=== PATIENT | female | born 1980 | race American Indian/Alaskan Native ===

== ENCOUNTER 2016-05-14 18:04 | Emergency (ER) | payer MEDICAID ==
--- NOTE | 2016-05-14 18:40 | ED PDOC ---
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 Patient stated she slipped and fell down backward as she was walking downstairs. Patient denies head injury, loc, neck pain, elbow pain, shoulder pain, back pain , dizziness, weakness, paresthesias, or abnormal gait. Time/Duration: Prior to Arrival Context: Home Past Medical History - Provider Review Nursing Documentation Reviewed: Yes - Infectious Disease Hx of Infectious Diseases: None - Psychiatric Hx Substance Use: No Family/Social History - Physician Review Nursing Documentation Reviewed: Yes Family/Social History: No Known Family HX Smoking Status: Light Smoker < 10 Cigarettes Daily Hx Alcohol Use: Yes Frequency of alcohol use: Socially Hx Substance Use: No Allergies/Home Meds Allergies/Adverse Reactions: Allergies No Known Allergies Allergy (Verified 05/14/16 18:19) Review of Systems - Review of Systems Constitutional: Normal. absent: Fatigue, Weight Change, Fevers, Night Sweats Eyes: Normal ENT: Normal Respiratory: Normal Cardiovascular: Normal Gastrointestinal: Normal Genitourinary Female: Normal Musculoskeletal: Other (Right thumb pain) Skin: Normal Neurological: Normal Endocrine: Normal Hemo/Lymphatic: Normal Psychiatric: Normal Physical Exam Vital Signs Temp Pulse Resp BP Pulse Ox 05/14/16 18:16 97.8 F 78 18 128/78 99 Temperature: Afebrile Blood Pressure: Normal Pulse: Regular Respiratory Rate: Normal Appearance: Positive for: Well-Appearing, Non-Toxic, Comfortable Pain Distress: None Mental Status: Positive for: Alert and Oriented X 3 - Systems Exam Head: Present: Atraumatic, Normocephalic, Other (No raccoon sign. No pelaez sign) Pupils: Present: PERRL, Other (no hyphema) Extroacular Muscles: Present: EOMI. No: Entrapment Conjunctiva: Present: Normal Ears: Present: Normal, NORMAL TM, Other (No hemotympanum) Mouth: Present: Moist Mucous Membranes Pharnyx: Present: Normal Nose (External): Present: Atraumatic Nose (Internal): Present: Normal Inspection Neck: Present: Normal Range of Motion, Trachea Midline. No: Meningeal Signs, MIDLINE TENDERNESS, Paraspinal Tenderness Respiratory/Chest: Present: Clear to Auscultation, Good Air Exchange. No: Respiratory Distress, Accessory Muscle Use, Tender to Palpation Cardiovascular: Present: Regular Rate and Rhythm, Normal S1, S2. No: Murmurs Abdomen: Present: Normal Bowel Sounds. No: Tenderness, Distention, Peritoneal Signs Back: Present: Normal Inspection. No: CVA Tenderness Upper Extremity: Present: Normal Inspection, NORMAL PULSES, Tenderness (Mild tenderness on proximal 1st MPJ of right hand, ulnar side). No: Cyanosis, Edema Lower Extremity: Present: Normal Inspection. No: Edema Neurological: Present: GCS=15, CN II-XII Intact, Speech Normal Skin: Present: Warm, Dry, Normal Color. No: Rashes Psychiatric: Present: Alert, Oriented x 3 Medical Decision Making ED Course and Treatment: 05/14/16 19:23 Re-evaluation. Patient feels better. Discussed results and plan with patient who expresses understanding. All questions answered and there is agreement with the plan to discharge home with instructions. Patient stable for discharge. Return if symptoms persist or worsen. Re-evaluation Time: 19:30 Reassessment Condition: Re-examined, Improved - RAD Interpretation Narrative RAD Interpretations (Text): 05/14/16 19:24 Thumb x-rays: No fx or dislocation Radiology Orders: 05/14/16 18:36 HAND RIGHT THUMB [RAD] Stat - Medication Orders Current Medication Orders: Discontinued Medications Ibuprofen (Motrin Tab) 600 mg PO STAT STA Stop: 05/14/16 18:38 Last Admin: 05/14/16 18:47 Dose: 600 MG - Procedure PROCEDURE NOTE (Text): 05/14/16 19:24 Thumb spika splint was ordered Disposition/Present on Arrival - Present on Arrival Any Indicators Present on Arrival: No History of DVT/PE: No History of Uncontrolled Diabetes: No Urinary Catheter: No History of Decub. Ulcer: No History Surgical Site Infection Following: None - Disposition Have Diagnosis and Disposition been Completed?: Yes Diagnosis: Thumb sprain Disposition: HOME/ ROUTINE Disposition Time: 19:32 Patient Plan: Discharge Condition: GOOD Discharge Instructions (ExitCare): Finger Sprain (ED) Additional Instructions: Call private doctor for follow up visit in 1-2 days. Take medication as instructed. Use thumb splint for 7- 10 days. Remove splint at bedtime. Return to emergency if symptoms worsen. Prescriptions: Naproxen 500 mg PO BID PRN #20 tab PRN Reason: Pain, Severe (8-10) Referrals: [facility] [Outside] - Follow up with primary Forms: WORK NOTE
[2016-05-14 18:43] VITALS: BP 128/78; PULSE 78; RESP 18; TEMP 97.8; O2SAT 99
--- NOTE | 2016-05-15 09:44 | RAD ---
PROCEDURE: Right Hand and thumb Radiographs. HISTORY: pain s/p fall COMPARISON: None. FINDINGS: BONES: Normal. No fracture. JOINTS: Normal. No osteoarthritic changes. SOFT TISSUES: Normal. OTHER FINDINGS: None. IMPRESSION: Negative study
== END 2016-05-14 19:41 | disposition home or self-care (01) ==
LOC: ED 18:04
DX: S63.601A Unspecified sprain of right thumb, initial encounter (principal); W01.0XXA Fall on same level from slipping, tripping and stumbling without subsequent striking against object, initial encounter; Y92.009 Unspecified place in unspecified non-institutional (private) residence as the place of occurrence of the external cause

== ENCOUNTER 2016-05-22 03:55 | Emergency (ER) | payer MEDICAID ==
[2016-05-22 04:19] VITALS: BMI 30.9
[2016-05-22 04:40] VITALS: TEMP 97.5
--- NOTE | 2016-05-22 04:54 | ED PDOC ---
Arrival/HPI - General Chief Complaint: Abdominal Pain Time Seen by Provider: 05/22/16 04:12 Historian: Patient - History of Present Illness Narrative History of Present Illness (Text): 05/22/16 04:51 Suzette Feng is a 35 year old female, with no significant past medical history , presents to the emergency department complaining of 2 hour duration of diffuse abdominal pain associated with nausea and 2 bouts of vomiting. Reports that she was drinking alcohol during the onset of symptoms. Denies using any other drugs tonight. No relieving or exacerbating factors. 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 Denies fever, chills, chest pain, shortness of breath, diarrhea, urinary symptoms or any other complaints at this time. Time/Duration: 1-3 hours Symptom Onset: Gradual Symptom Course: Unchanged Severity Level: Mild Activities at Onset: Light Context: Home Past Medical History - Provider Review Nursing Documentation Reviewed: Yes - Infectious Disease Hx of Infectious Diseases: None - Psychiatric Hx Substance Use: No Family/Social History - Physician Review Nursing Documentation Reviewed: Yes Family/Social History: No Known Family HX Smoking Status: Light Smoker < 10 Cigarettes Daily Hx Alcohol Use: Yes Frequency of alcohol use: Daily Hx Substance Use: No Allergies/Home Meds Allergies/Adverse Reactions: Allergies No Known Allergies Allergy (Verified 05/22/16 04:19) Review of Systems - Physician Review All systems were reviewed & negative as marked: Yes - Review of Systems Constitutional: Normal. absent: Fatigue, Fevers Respiratory: Normal. absent: SOB, Cough Cardiovascular: Normal. absent: Chest Pain Gastrointestinal: Abdominal Pain, Nausea, Vomiting. absent: Diarrhea Neurological: Normal. absent: Headache, Dizziness Psychiatric: Normal Physical Exam Vital Signs Reviewed: Yes Vital Signs Temp Pulse Resp BP Pulse Ox 05/22/16 09:38 77 16 124/84 100 05/22/16 09:36 77 16 124/84 100 05/22/16 08:03 64 16 116/69 99 05/22/16 04:39 97.5 F L 80 18 115/54 L 100 Temperature: Afebrile Blood Pressure: Normal Pulse: Regular Respiratory Rate: Normal Appearance: Positive for: Well-Appearing, Non-Toxic, Comfortable Pain Distress: None Mental Status: Positive for: Alert and Oriented X 3 - Systems Exam Head: Present: Atraumatic, Normocephalic Pupils: Present: PERRL Conjunctiva: Present: Normal Respiratory/Chest: Present: Clear to Auscultation, Good Air Exchange. No: Respiratory Distress, Accessory Muscle Use Cardiovascular: Present: Regular Rate and Rhythm, Normal S1, S2. No: Murmurs Abdomen: Present: Normal Bowel Sounds. No: Tenderness, Distention, Peritoneal Signs Upper Extremity: Present: Normal Inspection. No: Cyanosis, Edema Lower Extremity: Present: Normal Inspection. No: Edema Neurological: Present: GCS=15, CN II-XII Intact, Speech Normal Skin: Present: Warm, Dry, Normal Color. No: Rashes Psychiatric: Present: Alert, Oriented x 3, Normal Insight, Normal Concentration Medical Decision Making ED Course and Treatment: 05/22/16 04:56 Impression: A 35 year old female who presents to the emergency department complaining of abdominal pain with nausea and vomiting for 2 hours Plan: -- Reassess and disposition Progress Notes: - Lab Interpretations Lab Results: 05/22/16 06:00 05/22/16 07:20 Lab Results 05/22/16 07:20: Sodium 140, Potassium 4.0, Chloride 108 H, Carbon Dioxide 25, Anion Gap 11, BUN 11, Creatinine 0.8, Est GFR ( Amer) > 60, Est GFR (Non- Af Amer) > 60, Random Glucose 91, Calcium 8.5, Total Bilirubin 0.3, AST 24, ALT 27, Alkaline Phosphatase 74, Total Protein 7.2, Albumin 3.6, Globulin 3.6, Albumin/Globulin Ratio 1.0 L, Lipase 58 05/22/16 06:15: Urine Color Yellow, Urine Appearance Clear, Urine pH 6.5, Ur Specific Check 1.015, Urine Protein Negative, Urine Glucose (UA) Negative, Urine Ketones Negative, Urine Blood Negative, Urine Nitrate Negative, Urine Bilirubin Negative, Urine Urobilinogen 0.2, Ur Leukocyte Esterase Negative, Urine HCG, Qual Negative, Urine Opiates Screen Negative, Urine Methadone Screen Negative, Ur Barbiturates Screen Negative, Ur Phencyclidine Scrn Negative, Ur Amphetamines Screen Negative, U Benzodiazepines Scrn Negative, U Oth Cocaine Metabols Negative, U Cannabinoids Screen Negative 05/22/16 06:00: WBC 5.0, RBC 4.74, Hgb 13.8, Hct 40.0, MCV 84.4, MCH 29.1, MCHC 34.5, RDW 13.2, Plt Count 239, MPV 10.2, Gran % 57.2, Lymph % (Auto) 37.8 H, Castro % (Auto) 4.4, Eos % (Auto) 0.4 L, Baso % (Auto) 0.2, Gran # 2.85, Lymph # 1.9, Castro # 0.2, Eos # 0.0, Baso # 0.01 - RAD Interpretation Radiology Orders: 05/22/16 05:01 ABD & PELVIS IV CONTRAST ONLY [CT] Stat - Medication Orders Current Medication Orders: Discontinued Medications Sodium Chloride (Sodium Chloride 0.9%) 1,000 mls @ 999 mls/hr IV .Q1H1M STA Stop: 05/22/16 06:01 Last Admin: 05/22/16 06:00 Dose: 999 MLS/HR eMAR Start Stop Document 05/22/16 06:00 MR (Rec: 05/22/16 06:00 [id number]) Intravenous Solution Start Date 05/22/16 Start Time 06:00 End Date 05/22/16 End time 07:00 Total Infusion Time 60 Iohexol (Omnipaque 350 100 Ml) Confirm Administered Dose 350 mg .ROUTE .STK-MED ONE Stop: 05/22/16 08:26 Ondansetron HCl (Zofran Inj) 4 mg IVP ONCE ONE Stop: 05/22/16 05:02 Last Admin: 05/22/16 06:00 Dose: 4 MG IVP Administration Document 05/22/16 06:00 MR (Rec: 05/22/16 06:00 [id number]) Charges for Administration # of IVP Administrations 1 - Scribe Statement The provider has reviewed the documentation as recorded by the Gunner Orellana Provider Attestation: All medical record entries made by the Gunner were at my direction and personally dictated by me. I have reviewed the chart and agree that the record accurately reflects my personal performance of the history, physical exam, medical decision making, and the department course for this patient. I have also personally directed, reviewed, and agree with the discharge instructions and disposition. Disposition/Present on Arrival - Present on Arrival Any Indicators Present on Arrival: No History of DVT/PE: No History of Uncontrolled Diabetes: No Urinary Catheter: No History of Decub. Ulcer: No History Surgical Site Infection Following: None - Disposition Have Diagnosis and Disposition been Completed?: No Diagnosis: Abdominal pain Disposition: HOME/ ROUTINE Disposition Time: 07:00 Condition: STABLE Discharge Instructions (ExitCare): Acute Abdominal Pain (ED) Additional Instructions: please follow up with your doctor. return to er with worsening symptoms or concerns. please discuss your ct results (can be obtained from medical records) with the specialist. and clinic. Prescriptions: Famotidine [Pepcid] 20 mg PO DAILY #20 tab Referrals: [facility] [Outside] - Follow up with primary [facility] [place]] - Follow up with primary Sundeep Hermosillo MD [Staff Provider] - Follow up with primary PCP,NO [Primary Care Provider] - Follow up with primary Physician Patient Turnover Patient Signed Over To: Linden Pool Handoff Comments: f/u CT
[2016-05-22] MEDS ORDERED: Sodium Chloride 0.9% 1,000 ML IV STA (05:01)
[2016-05-22 06:18] LABS: ADD MANUAL DIFF? NO
[2016-05-22 06:26] LABS: BASO # 0.01 K/mm3 (0.0-2.0); BASO % 0.2 % (0.0-3.0); EOS % 0.4 % (1.5-5.0); GRAN # 2.85 (1.4-6.5); GRAN % 57.2 % (50.0-68.0); LYMPH # 1.9 (1.2-3.4); LYMPH % 37.8 % (22.0-35.0); MEAN CELL VOLUME 84.4 fL (80.0-105.0); MEAN CORPUSCULAR HEMOGLOBIN 29.1 pg (25.0-35.0); MEAN CORPUSCULAR HGB CONC 34.5 g/dl (31.0-37.0); MEAN PLATELET VOLUME 10.2 fl (7.0-11.0); MONO # 0.2 (0.1-0.6); MONO % 4.4 % (1.0-6.0); PLATELET COUNT 239 10^3/uL (120.0-450.0); RED CELL DISTRIBUTION WIDTH 13.2 % (11.5-14.5)
[2016-05-22 06:28] LABS: PH,URINE 6.5 (4.7-8.0); URINE BILIRUBIN NEGATIVE (NEGATIVE); URINE BLOOD NEGATIVE (NEGATIVE); URINE GLUCOSE (UA) NEGATIVE (NEGATIVE); URINE KETONE NEGATIVE (NEGATIVE); URINE LEUKOCYTE ESTERASE NEGATIVE Leu/uL (NEGATIVE); URINE PROTEIN NEGATIVE mg/dL (<30 mg/dL); URINE UROBILINOGEN 0.2 E.U./dL (<1 E.U./dL)
[2016-05-22 06:32] LABS: URINE APPEARANCE CLEAR (CLEAR); URINE COLOR YELLOW (YELLOW)
--- NOTE | 2016-05-22 07:15 | ED PDOC ---
Physical Exam Vital Signs Reviewed: Yes Vital Signs Temp Pulse Resp BP Pulse Ox 05/22/16 08:03 64 16 116/69 99 05/22/16 04:39 97.5 F L 80 18 115/54 L 100 Temperature: Afebrile Blood Pressure: Hypotensive Pulse: Regular Respiratory Rate: Normal Appearance: Positive for: Well-Appearing, Non-Toxic, Comfortable Pain Distress: None Mental Status: Positive for: Alert and Oriented X 3 Medical Decision Making ED Course and Treatment: 05/22/16 07:00 Case signed out to me from overnight by Dr. Monaco, pending labs, imaging, reevaluation and disposition. The patient is a 35 year old female who came into the emergency department earlier today for evaluation of diffuse abdominal pain associated with nausea and vomiting. Patient did admit to drinking alcohol prior to onset of symptoms but did no use any other drugs. On physical examination the patient has no tenderness to the abdomen. Abdomen/Pelvis CT, lab work and urinalysis was ordered. Patient given Zofran and IV fluids. On reevaluation, the patient is resting comfortably, awaiting CT scan. 05/22/16 09:05 Abdomen/Pelvis CT: Creator : Phuong Bonilla MD COMPARISON: None available FINDINGS: LOWER THORAX: No visible consolidation, pleural effusion, or pneumothorax. LIVER: Unremarkable. GALLBLADDER AND BILE DUCTS: Unremarkable. PANCREAS: 9 mm rounded structure adjacent to the pancreatic tail and medial inferior to the spleen ; this is suspected to reflect a splenule however a distinct plane cannot be established from the pancreatic tail and exophytic pancreatic neoplasm must be excluded. The pancreas appears otherwise unremarkable. SPLEEN: Probable 13 mm splenule. Additional 9 mm splenule versus pancreatic lesion as above. The spleen appears otherwise unremarkable. ADRENALS: Unremarkable. KIDNEYS AND URETERS: The kidneys enhance symmetrically. No hydronephrosis or obstructing calculus identified. VASCULATURE: No aortic aneurysm. BOWEL: The stomach is nondistended. Lack of oral contrast limits evaluation for bowel pathology. Bowel loops appear within normal limits of caliber without evidence of obstruction. APPENDIX: The appendix appears within normal limits of caliber. No secondary signs of acute appendicitis. PERITONEUM: Small pelvic free fluid. No definite free air. LYMPH NODES: No bulky lymphadenopathy. BLADDER: Unremarkable. REPRODUCTIVE: The uterus is present. Probable bilateral ovarian cysts. BONES: No acute osseous abnormality is detected. OTHER FINDINGS: Small fat containing umbilical hernia. IMPRESSION: 9 mm rounded structure adjacent to the pancreatic tail and medial inferior to the spleen ; this is suspected to reflect a splenule however a distinct plane cannot be established from the pancreatic tail and exophytic pancreatic neoplasm must be excluded. Dedicated pancreatic protocol CT or MRI recommended for further characterization. Probable bilateral ovarian cysts. Pelvic ultrasound may be considered. Small pelvic free fluid. 05/22/16 09:[address] scan shows likely shows splenule vs less likely malignancy. On reevlauation, the patient abdomen is soft and non tender. Lab work is unremarkable. I have discussed the results and plan with the patient, who expresses understanding. Patient in agreement with plan to discharged home. Patient is stable for discharge. Patient was advised to follow up with GI outpatient or return if symptoms worsen or new concerning symptoms arise. - Lab Interpretations Lab Results: 05/22/16 06:00 05/22/16 07:20 Lab Results 05/22/16 07:20: Sodium 140, Potassium 4.0, Chloride 108 H, Carbon Dioxide 25, Anion Gap 11, BUN 11, Creatinine 0.8, Est GFR ( Amer) > 60, Est GFR (Non- Af Amer) > 60, Random Glucose 91, Calcium 8.5, Total Bilirubin 0.3, AST 24, ALT 27, Alkaline Phosphatase 74, Total Protein 7.2, Albumin 3.6, Globulin 3.6, Albumin/Globulin Ratio 1.0 L, Lipase 58 05/22/16 06:15: Urine Color Yellow, Urine Appearance Clear, Urine pH 6.5, Ur Specific Britton 1.015, Urine Protein Negative, Urine Glucose (UA) Negative, Urine Ketones Negative, Urine Blood Negative, Urine Nitrate Negative, Urine Bilirubin Negative, Urine Urobilinogen 0.2, Ur Leukocyte Esterase Negative, Urine HCG, Qual Negative, Urine Opiates Screen Negative, Urine Methadone Screen Negative, Ur Barbiturates Screen Negative, Ur Phencyclidine Scrn Negative, Ur Amphetamines Screen Negative, U Benzodiazepines Scrn Negative, U Oth Cocaine Metabols Negative, U Cannabinoids Screen Negative 05/22/16 06:00: WBC 5.0, RBC 4.74, Hgb 13.8, Hct 40.0, MCV 84.4, MCH 29.1, MCHC 34.5, RDW 13.2, Plt Count 239, MPV 10.2, Gran % 57.2, Lymph % (Auto) 37.8 H, Ell[place] % (Auto) 4.4, Eos % (Auto) 0.4 L, Baso % (Auto) 0.2, Gran # 2.85, Lymph # 1.9, Ellsworth # 0.2, Eos # 0.0, Baso # 0.01 I have reviewed the lab results: Yes - RAD Interpretation Radiology Orders: 05/22/16 05:01 ABD & PELVIS IV CONTRAST ONLY [CT] Stat - Medication Orders Current Medication Orders: Discontinued Medications Sodium Chloride (Sodium Chloride 0.9%) 1,000 mls @ 999 mls/hr IV .Q1H1M STA Stop: 05/22/16 06:01 Last Admin: 05/22/16 06:00 Dose: 999 MLS/HR eMAR Start Stop Document 05/22/16 06:00 MR (Rec: 05/22/16 06:00 [id number]) Intravenous Solution Start Date 05/22/16 Start Time 06:00 End Date 05/22/16 End time 07:00 Total Infusion Time 60 Iohexol (Omnipaque 350 100 Ml) Confirm Administered Dose 350 mg .ROUTE .STK-MED ONE Stop: 05/22/16 08:26 Ondansetron HCl (Zofran Inj) 4 mg IVP ONCE ONE Stop: 05/22/16 05:02 Last Admin: 05/22/16 06:00 Dose: 4 MG IVP Administration Document 05/22/16 06:00 MR (Rec: 05/22/16 06:00 [id number]) Charges for Administration # of IVP Administrations 1 - Scribe Statement The provider has reviewed the documentation as recorded by the Gunner Brooks Provider Scribe Attestation: All medical record entries made by the Scribe were at my direction and personally dictated by me. I have reviewed the chart and agree that the record accurately reflects my personal performance of the history, physical exam, medical decision making, and the department course for this patient. I have also personally directed, reviewed, and agree with the discharge instructions and disposition. Disposition/Present on Arrival - Present on Arrival Any Indicators Present on Arrival: No History of DVT/PE: No History of Uncontrolled Diabetes: No Urinary Catheter: No History of Decub. Ulcer: No History Surgical Site Infection Following: None - Disposition Have Diagnosis and Disposition been Completed?: Yes Diagnosis: Abdominal pain Disposition: HOME/ ROUTINE Disposition Time: 09:09 Patient Problems: Current Active Problems Problem Status Diagnosed Abdominal pain Acute Condition: STABLE Discharge Instructions (ExitCare): Acute Abdominal Pain (ED) Additional Instructions: please follow up with your doctor. return to er with worsening symptoms or concerns. please discuss your ct results (can be obtained from medical records) with the specialist. and clinic. Prescriptions: Famotidine [Pepcid] 20 mg PO DAILY #20 tab Referrals: [facility] [Primary Care Provider] - Follow up with primary Sundeep Hermosillo MD [Staff Provider] - Follow up with primary [facility] at [facility] [place] [Outside] - Follow up with primary [facility] [Outside] - Follow up with primary
[2016-05-22 07:49] LABS: ALKALINE PHOSPHATASE 74 U/L (38-133); ALT/SGPT 27 U/L (7-56); AST/SGOT 24 U/L (15-39); BILIRUBIN,TOTAL 0.3 mg/dL (0.2-1.3); BLOOD UREA NITROGEN 11 mg/dL (7-21); CALCIUM 8.5 mg/dL (8.4-10.5); CARBON DIOXIDE 25 mmol/L (21-33); CHLORIDE 108 mmol/L (98-107); GFR AFRICAN-AMERICAN > 60; GLUCOSE,RANDOM 91 mg/dL (70-110); LIPASE 58 U/L (23-300); SODIUM 140 mmol/L (132-148); TOTAL PROTEIN 7.2 g/dL (5.8-8.3)
[2016-05-22 08:08] VITALS: RESP 16
[2016-05-22] MEDS ORDERED: Iohexol 350 MG/100 ML VIAL ONE (08:25)
--- NOTE | 2016-05-22 09:05 | CT ---
PROCEDURE: CT Abdomen and Pelvis with contrast HISTORY: abdominal pain COMPARISON: None available TECHNIQUE: Contrast dose: 100 mL Omnipaque 350 Radiation dose: Total exam DLP = 459.88 mGy-cm. This CT exam was performed using one or more of the following dose reduction techniques: Automated exposure control, adjustment of the mA and/or kV according to patient size, and/or use of iterative reconstruction technique. FINDINGS: LOWER THORAX: No visible consolidation, pleural effusion, or pneumothorax. LIVER: Unremarkable. GALLBLADDER AND BILE DUCTS: Unremarkable. PANCREAS: 9 mm rounded structure adjacent to the pancreatic tail and medial inferior to the spleen ; this is suspected to reflect a splenule however a distinct plane cannot be established from the pancreatic tail and exophytic pancreatic neoplasm must be excluded. The pancreas appears otherwise unremarkable. SPLEEN: Probable 13 mm splenule. Additional 9 mm splenule versus pancreatic lesion as above. The spleen appears otherwise unremarkable. ADRENALS: Unremarkable. KIDNEYS AND URETERS: The kidneys enhance symmetrically. No hydronephrosis or obstructing calculus identified. VASCULATURE: No aortic aneurysm. BOWEL: The stomach is nondistended. Lack of oral contrast limits evaluation for bowel pathology. Bowel loops appear within normal limits of caliber without evidence of obstruction. APPENDIX: The appendix appears within normal limits of caliber. No secondary signs of acute appendicitis. PERITONEUM: Small pelvic free fluid. No definite free air. LYMPH NODES: No bulky lymphadenopathy. BLADDER: Unremarkable. REPRODUCTIVE: The uterus is present. Probable bilateral ovarian cysts. BONES: No acute osseous abnormality is detected. OTHER FINDINGS: Small fat containing umbilical hernia. IMPRESSION: 9 mm rounded structure adjacent to the pancreatic tail and medial inferior to the spleen ; this is suspected to reflect a splenule however a distinct plane cannot be established from the pancreatic tail and exophytic pancreatic neoplasm must be excluded. Dedicated pancreatic protocol CT or MRI recommended for further characterization. Probable bilateral ovarian cysts. Pelvic ultrasound may be considered. Small pelvic free fluid.
[2016-05-22 09:38] VITALS: BP 124/84; PULSE 77; O2SAT 100
== END 2016-05-22 09:38 | disposition home or self-care (01) ==
LOC: ED 03:55
DX: R10.9 Unspecified abdominal pain (principal)
CPT/HCPCS: 74177; 80053; 80324; 80345; 80346; 80349; 80353; 80358; 80361; 81003; 83690; 83992; 84703; 85025; 96361; 96374; 99284; J2405; J7040; Q9967

== ENCOUNTER 2016-06-07 23:31 | Emergency (ER) | payer MEDICAID ==
[2016-06-08 00:54] VITALS: BMI 31.4
[2016-06-08 01:34] VITALS: BP 111/73; PULSE 89; RESP 20; TEMP 97; O2SAT 98
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
== END 2016-06-08 03:10 | disposition home or self-care (01) ==
LOC: ED 23:31
DX: S29.012A Strain of muscle and tendon of back wall of thorax, initial encounter (principal); V49.49XA Driver injured in collision with other motor vehicles in traffic accident, initial encounter; Y92.410 Unspecified street and highway as the place of occurrence of the external cause

== ENCOUNTER 2016-06-17 15:18 | Emergency (ER) | payer MEDICAID ==
[2016-06-17 15:18] VITALS: BMI 31.4
[2016-06-17 15:49] VITALS: RESP 16; TEMP 98.7
[2016-06-17] MEDS ORDERED: TraMADol/Apap 37.5/325 mg Tab PO STA (16:43)
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
[2016-06-17 17:14] VITALS: BP 138/72; PULSE 65; O2SAT 97
== END 2016-06-17 17:14 | disposition home or self-care (01) ==
LOC: ED 15:18
DX: M54.89 Other dorsalgia (principal); F17.210 Nicotine dependence, cigarettes, uncomplicated

== ENCOUNTER 2017-02-04 09:43 | Emergency (ER) | payer MEDICAID ==
[2017-02-04 09:43] VITALS: BMI 31.4
[2017-02-04 10:17] VITALS: BP 106/69; PULSE 97; RESP 16; TEMP 98.3; O2SAT 98
--- NOTE | 2017-02-04 10:24 | ED PDOC ---
Arrival/HPI - General Chief Complaint: Abnormal Skin Integrity Time Seen by Provider: 02/04/17 10:20 Historian: Patient - History of Present Illness Narrative History of Present Illness (Text): 02/04/17 36 yo female w/o significant Past medical history come in for evaluation of itchy rash to B/L palms gradually developed for past few weeks. Pt reports, " started on Right palm first and now moved to left". Pt admits, "work wearing latex gloves all the time and wash my hands constantly". Otherwise, pt denies fever, chills, known previous hx of allergy, throat tightness or swelling, chest pain, shortness of breath, wheezing, denies swelling, weakness, deformity , sensory or vascular deficits to B/L Hands. Ambulate to Emergency department for evaluation, not in any apparent distress. Past Medical History - Provider Review Nursing Documentation Reviewed: Yes - Travel History Have you recently traveled outside [place] w/in the past 3 mons?: No - Past History Past History: No Previous - Infectious Disease Hx of Infectious Diseases: None - Cardiac Hx Cardiac Disorders: No - Pulmonary Hx Respiratory Disorders: No - Neurological Hx Neurological Disorder: No - HEENT Hx HEENT Disorder: No - Renal Hx Renal Disorder: No - Endocrine/Metabolic Hx Endocrine Disorders: No - Hematological/Oncological Hx Blood Disorders: No - Integumentary Hx Dermatological Disorder: No - Musculoskeletal/Rheumatological Hx Musculoskeletal Disorders: No - Gastrointestinal Hx Gastrointestinal Disorders: No - Genitourinary/Gynecological Hx Genitourinary Disorders: No - Psychiatric Hx Psychophysiologic Disorder: No Hx Substance Use: No - Anesthesia Hx Anesthesia: No Family/Social History - Physician Review Nursing Documentation Reviewed: Yes Family/Social History: No Known Family HX Smoking Status: Light Smoker < 10 Cigarettes Daily Hx Alcohol Use: Yes Frequency of alcohol use: Socially Hx Substance Use: No Allergies/Home Meds Allergies/Adverse Reactions: Allergies No Known Allergies Allergy (Verified 02/04/17 10:12) Review of Systems - Physician Review All systems were reviewed & negative as marked: Yes - Review of Systems Constitutional: Normal Eyes: Normal ENT: Normal Respiratory: Normal Skin: Rash Neurological: Normal Endocrine: Normal Hemo/Lymphatic: Normal Psychiatric: Normal Physical Exam Vital Signs Temp Pulse Resp BP Pulse Ox 02/04/17 10:13 98.3 F 97 H 16 106/69 98 Temperature: Afebrile Blood Pressure: Normal Pulse: Regular Respiratory Rate: Normal Appearance: Positive for: Well-Appearing, Non-Toxic, Comfortable Pain Distress: None Mental Status: Positive for: Alert and Oriented X 3 - Systems Exam Conjunctiva: Present: Normal Mouth: Present: Moist Mucous Membranes, Normal Lips, Normal Tounge. No: Drooling Pharnyx: Present: Other (uvul a midine, no edema.). No: ERYTHEMA Neck: Present: Normal Range of Motion Respiratory/Chest: Present: Clear to Auscultation, Good Air Exchange. No: Respiratory Distress, Accessory Muscle Use Back: Present: Normal Inspection Upper Extremity: Present: Normal ROM, NORMAL PULSES, Neurovascularly Intact. No : Cyanosis, Edema, Deformity Lower Extremity: No: Edema Neurological: Present: GCS=15, Speech Normal, Normal Sensory Function, Norm Deep Tendon Reflexes Skin: Present: Warm, Dry, Rashes (scattered dry patches noted to R>L palms, no edema, no erythema, no discharges.), Normal Color Psychiatric: Present: Alert, Oriented x 3, Normal Concentration Medical Decision Making ED Course and Treatment: 02/04/17 On re-eval, pt is afebrile, hemodynamicaly stable. Non-toxic. B/L UEs: exam c/w rash r/o contact dermatitis. No evidence of cellulitis, trauma. FAROM, no neurovascular deficits. Pt advised on course of ds. ref. to F/u with PMD in 2-3 days for re-eavl. return to Ed if any worsening or new changes. Disposition/Present on Arrival - Present on Arrival Any Indicators Present on Arrival: No History of DVT/PE: No History of Uncontrolled Diabetes: No Urinary Catheter: No History of Decub. Ulcer: No History Surgical Site Infection Following: None - Disposition Have Diagnosis and Disposition been Completed?: Yes Diagnosis: Eczema Disposition: HOME/ ROUTINE Disposition Time: 10:21 Patient Plan: Discharge Condition: STABLE Discharge Instructions (ExitCare): Contact Dermatitis (ED) Additional Instructions: APPLY CREAM TO RASH AREA AVOID LATEX GLOVES DUE TO POSSIBLE ALLERGY FOLLOW UP WITH PMD, DERMATOLOGY IN 2-3 DAYS FOR RE-EVALUATION. RETURN TO Emergency department IF ANY WORSENING OR NEW CHANGES. Prescriptions: Hydrocortisone 1% Cream [Cortizone 1% Cream] 1 appl TP DAILY #1 tube Referrals: [facility] [Outside] - Follow up with primary Jarocho Love MD [Staff Provider] - Follow up with primary Forms: [employer] (Czech)
== END 2017-02-04 11:50 | disposition home or self-care (01) ==
LOC: ED 09:43
DX: L30.9 Dermatitis, unspecified (principal); F17.210 Nicotine dependence, cigarettes, uncomplicated

== ENCOUNTER 2017-03-02 19:36 | Emergency (ER) | payer MEDICAID ==
[2017-03-02 19:37] VITALS: BMI 31.4
== END 2017-03-02 20:55 | disposition left against medical advice (07) ==
LOC: ED 19:36
DX: Z02.89 Encounter for other administrative examinations (principal); R07.9 Chest pain, unspecified